=== PATIENT | female | born 1935 | race Caucasian/White ===

== ENCOUNTER 2017-01-17 15:08 | Emergency (ER) | payer OTHER, MEDICAID ==
[~2017-01-17] VITALS: Ht 165.1 cm; Wt 65.0 kg
[~2017-01-17 15:08] MED LIST: IBUP-1542 PO; OXYC-281 PO
[2017-01-17] MEDS ORDERED: HYDROCODONE/APAP (5/325) TAB PO ONE (16:00)
[2017-01-17 16:52] VITALS: Ht 165.1 cm; Wt 65.0 kg
[2017-01-17] MEDS ORDERED: CARV6.2579 PO (17:15)
[2017-01-17] MEDS ORDERED: ASPI-664 PO (17:15)
[2017-01-17] MEDS ORDERED: AMLO5TAB4 PO (17:15)
--- NOTE | 2017-01-17 17:15 | RADRPT ---
PROCEDURE: XR Chest. CLINICAL INDICATION: Trauma. . Chest pain TECHNIQUE: Single frontal chest x-ray. COMPARISON: None. FINDINGS: The lungs are clear of acute infiltrates, edema, or masses. The there is a trace right pleural effu emanuel.. The cardiomediastinal silhouette is unremarkable. There is a nondisplaced right posterior la teral ninth rib fracture.. There is no evidence of pneumothorax. IMPRESSION: Nondisplaced right ninth rib fracture. Trace right pleural effusion. No evidence of pneumothorax.. RPTAT: AA .Rony Rai MD, Date Time Electronically viewed and signed by .Rony Rai MD, on 01/17/2017 17:15 .L/
[2017-01-17] MEDS ORDERED: FLUT16SP17 NASAL (17:16)
--- NOTE | 2017-01-17 17:16 | RADRPT ---
PROCEDURE: XR Chest. CLINICAL INDICATION: Right rib pain TECHNIQUE: 3 views of the right rib cage are available for review COMPARISON: None available FINDINGS: There is a nondisplaced fracture involving the right posterior lateral ninth rib. There are no othe r fractures identified. There is no evidence of pneumothorax.. No radiopaque foreign body is ident ified. The visualized portions of the underlying lung is clear. IMPRESSION: 1. Nondisplaced fracture of the right posterior lateral ninth rib. RPTAT: AA .Rony Rai MD, Date Time Electronically viewed and signed by .Rony Rai MD, on 01/17/2017 17:16 .L/
[2017-01-17] MEDS ORDERED: HYDR-906 PO (18:01)
--- NOTE | 2017-01-17 18:04 | ERD ---
ER Documentation Chief Complaint Date/Time DATE: 01/17/17 TIME: 18:02 Chief Complaint right rib pain from a fall last wednesday HPI This is a 81-year-old female who is here for right posterior rib pain after she fell 4 days ago. The patient says she lost balance when she was turning around in the bathroom and she fell and hit her right posterior chest ribs on the toilet seat. She has no shortness of breath. She complains of sharp pinpoint pain when she moves or takes a deep breath. No shortness of breath chest pain no syncope or dizziness palpitations or other injury denies headache or neck pain ROS All systems reviewed and are negative except as per history of present illness. Medications Home Meds Active Scripts Hydrocodone/Acetaminophen (Boaz 5-325 Tablet) 1 Each Tablet, 1 TAB PO Q6H Y for PAIN, #20 TAB Prov:PATRICK HERNANDEZ DO 01/17/17 Reported Medications Fluticasone Propionate* (Fluticasone Propionate* Nasal) 50 Mcg/[place] - 16 Gm [place].susp, 1 SPRAY NASAL BID, #1 BOTTLE TO EACH NOSTRIL 01/17/17 Carvedilol* (Carvedilol*) 6.25 Mg Tablet, 6.25 MG PO BID, #60 TAB 01/17/17 Aspirin* (Aspirin* EC) 81 Mg Tablet.dr, 81 MG PO DAILY, TAB 01/17/17 Amlodipine Besylate* (Norvasc*) 5 Mg Tablet, 5 MG PO DAILY, TAB 01/17/17 Discontinued Scripts Oxycodone Hcl-Acetaminophen* (Percocet*) 5-325 Mg Tablet, 1 TAB PO Q4H Y for PAIN LEVEL 6-10, #10 TAB Prov:ESTRELLITA BURRELL MD 04/12/15 Ibuprofen* (Motrin*) 600 Mg Tab, 600 MG PO Q6 for PAIN, #30 TAB Prov:ESTRELLITA BURRELL MD 04/12/15 Allergies Allergies: Coded Allergies: No Known Allergy (Verified , 01/17/17) PMhx/Soc History of Surgery: Yes (left hip 05/27, hysterectomy 2012) Anesthesia Reaction: No Hx Neurological Disorder: No Hx Respiratory Disorders: No Hx Cardiac Disorders: Yes (HTN) Hx Psychiatric Problems: No Hx Miscellaneous Medical Probl: No Hx Alcohol Use: No Hx Substance Use: No Hx Tobacco Use: No Smoking Status: Never smoker FmHx Family History: No coronary disease Physical Exam Vitals Vital Signs Date Time Temp Pulse Resp B/P Pulse Ox O2 Delivery O2 Flow Rate FiO2 01/17/17 16:52 98.7 75 18 158/97 97 Physical Exam Const: Well-developed, well-nourished Head: Atraumatic, normocephalic Eyes: Normal Conjunctiva, PERRLA, EOMI, normal sclera, no nystagmus ENT: Normal External Ears, Nose and Mouth, moist mucus membranes. Neck: Full range of motion. No meningismus, no lymphadenopathy. Resp: Clear to auscultation bilaterally mild wheezing, no rhonchi, rales, there is pinpoint pain to the posterior lateral rib cage around rib 9 or 10 Cardio: Regular rate and rhythm, no murmurs, S1 S2 present Abd: Soft, non tender x 4, non distended. Normal bowel sounds, no guarding or rebound, no pulsitile abdominal masses or bruits Skin: No petechiae or rashes, no ecchymosis , no maculopapular rash Back: No midline or flank tenderness Ext: No cyanosis, or edema, FROM x 4, normal inspection, neurovascularly intact x 4 Neur: Awake and alert, STR 5/5 x 4, sensation intact x 4, no focal findings, cerebellum intact Psych: Normal Mood and Affect Results 24 hrs Current Medications Medications (Trade) Dose Ordered Sig/Wilber Route PRN Reason Start Time Stop Time Status Last Admin Dose Admin Acetaminophen/ Hydrocodone Bitart ([place]az (5/325)) 1 tab ONCE ONCE PO 01/17/17 16:00 01/17/17 16:02 DC Procedures/MDM PROCEDURE: XR Chest. CLINICAL INDICATION: Trauma. . Chest pain TECHNIQUE: Single frontal chest x-ray. COMPARISON: None. FINDINGS: The lungs are clear of acute infiltrates, edema, or masses. The there is a trace right pleural effusion.. The cardiomediastinal silhouette is unremarkable. There is a nondisplaced right posterior lateral ninth rib fracture.. There is no evidence of pneumothorax. IMPRESSION: Nondisplaced right ninth rib fracture. Trace right pleural effusion. No evidence of pneumothorax.. RPTAT: AA .Rony Rai MD, Date Time Electronically viewed and signed by .Rony Rai MD, MD on 01/17/2017 17:15 .L/ CC: PATRICK HERNANDEZ DO PROCEDURE: XR Chest. CLINICAL INDICATION: Right rib pain TECHNIQUE: 3 views of the right rib cage are available for review COMPARISON: None available FINDINGS: There is a nondisplaced fracture involving the right posterior lateral ninth rib. There are no other fractures identified. There is no evidence of pneumothorax.. No radiopaque foreign body is identified. The visualized portions of the underlying lung is clear. IMPRESSION: 1. Nondisplaced fracture of the right posterior lateral ninth rib. RPTAT: AA .Rony Rai MD, Date Time Electronically viewed and signed by .Rony Rai MD, on 01/17/2017 17:16 .L/ CC: PATRICK HERNANDEZ DO Departure Diagnosis: Primary Impression: Rib fracture Encounter type: initial encounter Rib fracture type: single rib Fracture type: closed Laterality: right Qualified Code: S22.31XA - Closed fracture of one rib of right side, initial encounter Condition: Stable Patient Instructions: Rib Fracture (Broken Rib) PATRICK HERNANDEZ DO Jan 17, 2017 18:04
[2017-01-17 18:47] VITALS: BP 127/105; PULSE 77; RESP 17; TEMP 97.9
== END 2017-01-17 19:50 | disposition home or self-care (01) ==
LOC: E/R 15:08
DX: S22.31XA Fracture of one rib, right side, initial encounter for closed fracture (principal); I10 Essential (primary) hypertension; W18.09XA Striking against other object with subsequent fall, initial encounter; Y92.002 Bathroom of unspecified non-institutional (private) residence as the place of occurrence of the external cause; Z79.82 Long term (current) use of aspirin
CPT/HCPCS: 71010; 71100

== ENCOUNTER 2017-05-13 09:11 | Inpatient (IN) | END 2017-05-19 18:25 | DRG 280 ==